=== PATIENT | female | born 1995 | race Caucasian/White ===

== ENCOUNTER 2021-05-23 16:59 | Emergency (ER) | payer BC ==
[~2021-05-23] VITALS: Ht 157.5 cm; Wt 63.5 kg
--- NOTE | 2021-05-23 17:20 | NUR ---
To ER bed 16, "Been Having palpitations/pain on chest called clinic but was told to come in", denies any history of irregular heart rate, aaox3, breathing even and non labored, connected to monitor
--- NOTE | 2021-05-23 17:30 | NUR ---
SALINE LOCK ESTABLISHED, BLOOD DRAWN, AND SENT TO LAB
[2021-05-23] MEDS ORDERED: IV NS 0.9% 1,000 ML BAG IV ONE (18:00)
--- NOTE | 2021-05-23 18:25 | NUR ---
COVID ANTIGEN AND PCR SWAB DONE AND SENT TO LAB
[2021-05-23 19:19] LABS: CALCIUM, SERUM 8.7 mg/dL (8.5-10.1); CARBON DIOXIDE 26 mmol/L (21-32); CHLORIDE 100 mmol/L (98-107); CREATININE 0.7 mg/dL (0.6-1.3); GLUCOSE 77 mg/dL (74-106); POTASSIUM 3.3 mmol/L (3.5-5.1); SODIUM SERUM 135 mmol/L (136-145); UREA NITROGEN, BLOOD 15 mg/dL (7-18)
[2021-05-23 20:20] LABS: BASOPHILS # (AUTO) 0.1 K/uL (0.0-0.2); BASOPHILS % (AUTO) 0.8 % (0.0-2.0); EOSINOPHILS % (AUTO) 13.6 % (0.0-6.0); HEMATOCRIT 44 % (33-45); HEMOGLOBIN 14.8 g/dL (11.5-14.8); LYMPHOCYTES # (AUTO) 1.3 K/uL (0.8-4.8); LYMPHOCYTES % (AUTO) 19.2 % (20.0-44.0); MEAN CORPUSCULAR HGB CONC 34 g/dl (31.0-36.0); MEAN CORPUSCULAR VOLUME 88 fL (82-100); MONOCYTES # (AUTO) 0.5 K/uL (0.1-1.30); NEUTROPHILS # (AUTO) 3.9 K/uL (1.8-8.9); NEUTROPHILS % (AUTO) 58.4 % (43.0-81.0); PLATELET COUNT (AUTO) 257 K/uL (150-450); RED BLOOD CELL COUNT(AUTO) 4.96 MIL/uL (4.0-5.2); WHITE BLOOD COUNT (AUTO) 6.6 K/uL (4.3-11.0)
[2021-05-23] MEDS ORDERED: POTASSIUM CHLORIDE 20 MEQ TAB.PRT.SR PO ONE ×2 (20:30→20:48)
[2021-05-23] MEDS ORDERED: POTASSIUM CHLORIDE 10 MEQ TABLET.SA ONE (20:48)
--- NOTE | 2021-05-23 22:07 | NUR ---
Patient discharged to home in stable condition. Written and verbal after care instructions given. Patient verbalizes understanding of instruction.
[2021-05-23 22:16] VITALS: BP 121/74
== END 2021-05-23 22:17 | disposition home or self-care (01) ==
LOC: ER 17:12
DX: J06.9 Acute upper respiratory infection, unspecified (principal); R00.0 Tachycardia, unspecified; Z20.822 Contact with and (suspected) exposure to COVID-19; J45.909 Unspecified asthma, uncomplicated; Z88.6 Allergy status to analgesic agent
CPT/HCPCS: 36415; 71045; 80048; 84443; 84484; 84702; 85025; 85378; 87426; 93005; 96360; 99285; J7030; U0003

== ENCOUNTER 2021-10-08 16:17 | Emergency (ER) | payer BC ==
[~2021-10-08] VITALS: Ht 157.5 cm; Wt 61.2 kg
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
--- NOTE | 2021-10-08 17:40 | NUR ---
brisa FENTON at bedside
[2021-10-08] MEDS ORDERED: TDAP [DIPH/PERTUSSIS/TET] 0.5 ML VIAL IM ONE ×2 (17:52→18:00)
--- NOTE | 2021-10-08 17:58 | NUR ---
PT TAKEN TO XRAY VIA WHEELCHAIR
[2021-10-08] MEDS ORDERED: CYCL10TA9 PO (18:46)
--- NOTE | 2021-10-08 19:04 | NUR ---
Patient discharged to home in stable condition. Written and verbal after care instructions given. Patient verbalizes understanding of instruction.
[2021-10-08 19:05] VITALS: BP 113/78
== END 2021-10-08 19:05 | disposition home or self-care (01) ==
LOC: ER 16:17
DX: S16.1XXA Strain of muscle, fascia and tendon at neck level, initial encounter (principal); S20.212A Contusion of left front wall of thorax, initial encounter; S90.512A Abrasion, left ankle, initial encounter; J45.909 Unspecified asthma, uncomplicated; Z88.6 Allergy status to analgesic agent; V49.59XA Passenger injured in collision with other motor vehicles in traffic accident, initial encounter; Y93.89 Activity, other specified; Y92.413 State road as the place of occurrence of the external cause; Y99.8 Other external cause status
CPT/HCPCS: 71045-TC; 73610-TC; 90715